=== PATIENT | male | born 1965 | race Caucasian/White ===

== ENCOUNTER 2017-11-13 12:49 | Emergency (ER) | payer MEDICAID ==
[~2017-11-13] VITALS: Ht 167.6 cm; Wt 72.6 kg
[2017-11-13 13:00] VITALS: Ht 167.6 cm; Wt 72.6 kg
[2017-11-13 14:41] LABS: BASOPHIL % 0.6 % (0-2); PLATELET COUNT 281 x10^3mcL (130-400); RED CELL DISTRIBUTION WIDTH 13.2 % (11.5-14.5)
[2017-11-13 14:52] LABS: UA SPECIFIC GRAVITY 1.015 (1.005-1.035); microscopic required? YES; urine erythrocyte NEGATIVE (NEGATIVE)
[2017-11-13 14:54] LABS: CALCIUM 8.5 mg/dL (8.5-10.1); CARBON DIOXIDE 28.4 mmol/L (21-32); CHLORIDE SERUM 106 mmol/L (98-107); CREATININE SERUM 0.9 mg/dL (0.7-1.3); GFR1 > 60 mL/min; GLUCOSE SERUM 73 mg/dL (74-106); POTASSIUM SERUM 3.9 mmol/L (3.5-5.1); SODIUM SERUM 143 mmol/L (136-145)
[2017-11-13 14:58] LABS: ALBUMIN 3.8 g/dL (3.4-5.0); ALKALINE PHOSPHATASE 87 U/L (46-116); ALT/SGPT 29 U/L (16-63); AST/SGOT 17 U/L (15-37); BILIRUBIN TOTAL 0.6 mg/dL (0.20-1.00); TOTAL PROTEIN, SERUM 7.3 g/dL (6.4-8.2)
[2017-11-13 15:02] LABS: AMPHETAMINE QUAL UR NONE DETECTED (NEG <=1000)
[2017-11-13 18:07] VITALS: BP 138/79
== END 2017-11-13 18:07 | disposition home or self-care (01) ==
LOC: ED 12:49
PROVIDERS: Emergency Medicine
DX: R45.851 Suicidal ideations (principal); F17.210 Nicotine dependence, cigarettes, uncomplicated; F15.20 Other stimulant dependence, uncomplicated
CPT/HCPCS: 36415; G0480; Q0092

== ENCOUNTER 2017-11-23 20:52 | Emergency (ER) | payer MEDICAID ==
[2017-11-23 23:33] VITALS: BP 136/81
== END 2017-11-23 23:33 | disposition home or self-care (01) ==
LOC: ED 20:52
DX: B34.9 Viral infection, unspecified (principal); R19.7 Diarrhea, unspecified
CPT/HCPCS: J1100

== ENCOUNTER 2017-11-29 13:11 | Emergency (ER) | payer MEDICAID ==
[~2017-11-29] VITALS: Ht 170.2 cm; Wt 73.0 kg
[2017-11-29 13:13] VITALS: BP 118/93; Ht 170.2 cm; Wt 73.0 kg
== END 2017-11-29 16:35 | disposition home or self-care (01) ==
LOC: ED 13:11
DX: J06.9 Acute upper respiratory infection, unspecified (principal); J01.90 Acute sinusitis, unspecified

== ENCOUNTER 2018-01-06 11:33 | Emergency (ER) | payer MEDICAID ==
[~2018-01-06] VITALS: Ht 160 cm; Wt 75.9 kg
[2018-01-06 11:46] VITALS: BP 135/105; Ht 160 cm; Wt 75.9 kg
== END 2018-01-06 14:35 | disposition home or self-care (01) ==
LOC: ED 11:33
DX: N50.811 Right testicular pain (principal); J01.90 Acute sinusitis, unspecified
CPT/HCPCS: Q0092